=== PATIENT | female | born 1965 | race Caucasian/White ===

== ENCOUNTER → 2018-08-03 08:40 | Outpatient (CLI) | payer BC, SELFPAY ==
[2018-08-03 11:17] LABS: ALB/GLOB Ratio 0.8 RATIO (0.9-2.4); AST(SGOT) 17 U/L (15-37); Alanine Aminotransfer ALT/SGPT 28 U/L (13-56); Albumin, Serum 3.5 g/dL (3.2-5.0); Alkaline Phosphatase 103 U/L (45-117); Anion Gap 14 (5-15); BUN 23 mg/dL (7-18); BUN/Creat Ratio 26.9 RATIO (10-20); Calcium,Total 8.9 mg/dL (8.5-10.1); Chloride 105 mmol/L (98-107); Cholesterol 120 mg/dL (200); Creatinine, Serum 0.86 mg/dL (0.55-1.02); EST Glomerular Filtration Rate 73 mL/min (>60); Est Glom Filt Rate - Afr Amer 89 mL/min (>60); Globulin 4.2 g/dL (2.2-4.2); Glucose 129 mg/dL (74-106); High Density Lipoprotein 41 mg/dL; Potassium 4.1 mmol/L (3.5-5.1); Protein, Total 7.7 g/dL (6.4-8.2); Sodium Level 139 mmol/L (136-145); Thyroid Stim Hormone (TSH) 1.63 uIU/mL (0.358-3.74); Triglycerides 101 mg/dL; Very Low Density Lipoprotein 20 mg/dL (5-40)
== END ==
PROVIDERS: Family Provider Family Medicine; PCP Family Medicine; Visit Provider Family Medicine
DX: E11.319 Type 2 diabetes mellitus with unspecified diabetic retinopathy without macular edema (principal)
CPT/HCPCS: 36415; 80053; 80061; 84443

== ENCOUNTER → 2018-11-19 17:30 | Outpatient (CLI) | payer BC, SELFPAY ==
--- NOTE | 2018-11-19 17:19 | BI_ITS ---
MAMMOGRAPHY - BILATERAL SCREENING REASON FOR EXAM: Female, 53 years old. Routine annual screening examination. PERTINENT HISTORY: Non-contributory. TECHNIQUE: Digital bilateral breast wellington (3D mammographic acquisition) in the CC and MLO projections. 2-D mediolateral oblique (MLO) and craniocaudad (CC) views of both breasts were obtained. CAD: Full Field Digital Mammography with Computer Added Detection was performed. COMPARISON: No comparison mammograms available at this time. If any prior films become available, an addendum to this report can be generated. FINDINGS: Breast Composition: There are scattered areas of fibroglandular density. There are no dominant masses or suspicious calcifications. No other significant abnormalities are identified. There has been no significant change since the prior study. BI/SCREENING MAMM (CAD), BILAT IMPRESSION: Stable bilateral screening mammogram. Yearly follow-up mammogram recommended. (A) ASSESSMENT CATEGORY: BIRADS Category 1: Negative. A letter regarding these results will be sent to the patient by the facility within 30 days. Approximately 10% of breast cancers are not detected by mammography. A normal mammogram should not delay biopsy of a clinically suspicious abnormality. [id number] Electronically Signed: Ever Macario, at 10:01 EST , Service support ,
== END ==
PROVIDERS: Family Provider Family Medicine; PCP Family Medicine; Referring Provider Family Medicine; Visit Provider Family Medicine
DX: Z12.31 Encounter for screening mammogram for malignant neoplasm of breast (principal)
CPT/HCPCS: 77063; 77067

== ENCOUNTER → 2019-03-09 | Outpatient (CLI) | payer BC, SELFPAY ==
[2019-03-09 18:26] LABS: AST(SGOT) 15 U/L (15-37); Alanine Aminotransfer ALT/SGPT 25 U/L (13-56); Albumin, Serum 3.6 g/dL (3.2-5.0); Alkaline Phosphatase 88 U/L (45-117); Anion Gap 14 (5-15); BUN 14 mg/dL (7-18); BUN/Creat Ratio 18.8 RATIO (10-20); Calcium,Total 9.2 mg/dL (8.5-10.1); Chloride 107 mmol/L (98-107); Creatinine, Serum 0.74 mg/dL (0.55-1.02); EST Glomerular Filtration Rate 86 mL/min (>60); Est Glom Filt Rate - Afr Amer 104 mL/min (>60); Globulin 3.6 g/dL (2.2-4.2); Glucose 133 mg/dL (74-106); Protein, Total 7.2 g/dL (6.4-8.2); Sodium Level 143 mmol/L (136-145)
== END | disposition home or self-care (01) ==
LOC: MFPLAB 15:58
PROVIDERS: Family Provider Family Medicine; PCP Family Medicine; Referring Provider Family Medicine; Visit Provider Family Medicine
DX: E78.2 Mixed hyperlipidemia (principal)
CPT/HCPCS: 36415; 80053

== ENCOUNTER → 2019-11-22 08:31 | Outpatient (CLI) | payer BC, SELFPAY ==
[2019-11-22 10:48] LABS: AST(SGOT) 15 U/L (15-37); Alanine Aminotransfer ALT/SGPT 26 U/L (13-56); Albumin, Serum 3.7 g/dL (3.2-5.0); Alkaline Phosphatase 93 U/L (45-117); Anion Gap 8 (5-15); BUN 17 mg/dL (7-18); BUN/Creat Ratio 22.6 RATIO (10-20); Calcium,Total 9.3 mg/dL (8.5-10.1); Chloride 103 mmol/L (98-107); Cholesterol 141 mg/dL (200); Creatinine, Serum 0.75 mg/dL (0.55-1.02); EST Glomerular Filtration Rate 85 mL/min (>60); Est Glom Filt Rate - Afr Amer 102 mL/min (>60); Globulin 3.7 g/dL (2.2-4.2); Glucose 158 mg/dL (74-106); High Density Lipoprotein 43 mg/dL; Potassium 3.9 mmol/L (3.5-5.1); Protein, Total 7.4 g/dL (6.4-8.2); Sodium Level 136 mmol/L (136-145); Thyroid Stim Hormone (TSH) 2.67 uIU/mL (0.358-3.74); Triglycerides 212 mg/dL; Very Low Density Lipoprotein 42 mg/dL (5-40)
== END ==
PROVIDERS: PCP Family Medicine; Referring Provider Family Medicine; Visit Provider Family Medicine
DX: E11.319 Type 2 diabetes mellitus with unspecified diabetic retinopathy without macular edema (principal)
CPT/HCPCS: 36415; 80053; 80061; 84443

== ENCOUNTER → 2020-07-03 14:00 | Outpatient (CLI) | payer BC, SELFPAY ==
--- NOTE | 2020-07-03 14:04 | RAD_ITS ---
STUDY: X-RAY CHEST REASON FOR EXAM: Female, 54 years old. Pre op for pelvic surgery TECHNIQUE: PA and lateral views of the chest. COMPARISON: None. FINDINGS: The lungs are clear and expanded. There is no demonstrated pleural abnormality. Normal size heart. Normal mediastinum and oneal. Normal visualized pulmonary arteries. Normal visualized aortic arch and descending thoracic aorta. Normal visualized thoracic spine. Normal visualized ribs, clavicles, and shoulders. There is no demonstrated abnormality of the visualized soft tissue structures of the upper abdomen. RAD/Chest PA and Lateral IMPRESSION: Normal x-ray examination of the chest. Electronically Signed: Ricardo Burgos MD at 18:23 EDT , Service support ,
[2020-07-03 18:45] LABS: Hematocrit 46.8 % (37-47); Hemoglobin 15.2 g/dL (12.0-15.0); Mean Corp Hgb Conc 32.5 g/dL (32-36); Mean Corpuscular Hgb 28.4 pg (27.0-32.0); Mean Corpuscular Volume 87.3 fL (81-99); Mean Platelet Vol. 12.1 fl (6.2-12.0); Platelet Count 166 K/mm3 (150-450); RBC Distribution Width CV 12.9 % (11.6-14.6); RBC Distribution Width SD 40.6 fl (35.1-43.9); Red Blood Count 5.36 M/mm3 (4.2-5.4); White Blood Count 8.3 K/mm3 (4.4-11.0)
[2020-07-03 18:58] LABS: ALB/GLOB Ratio 1.2 RATIO (0.9-2.4); AST(SGOT) 17 U/L (15-37); Alanine Aminotransfer ALT/SGPT 33 U/L (13-56); Albumin, Serum 4.5 g/dL (3.2-5.0); Alkaline Phosphatase 104 U/L (45-117); Anion Gap 9 (5-15); BUN 17 mg/dL (7-18); Calcium,Total 9.5 mg/dL (8.5-10.1); Chloride 107 mmol/L (98-107); Creatinine, Serum 0.94 mg/dL (0.55-1.02); EST Glomerular Filtration Rate 65 mL/min (>60); Est Glom Filt Rate - Afr Amer 79 mL/min (>60); Globulin 3.8 g/dL (2.2-4.2); Glucose 197 mg/dL (74-106); Potassium 3.4 mmol/L (3.5-5.1); Protein, Total 8.3 g/dL (6.4-8.2); Sodium Level 140 mmol/L (136-145); Thyroid Stim Hormone (TSH) 1.84 uIU/mL (0.358-3.74)
[2020-07-03 19:09] LABS: International Normalized Ratio 0.9; Prothrombin Time (Protime)PT. 11.7 SECONDS (11.7-14.9)
[2020-07-03 19:10] LABS: Partial Thromboplast Time 25.8 Seconds (24.1-36.2)
== END ==
PROVIDERS: PCP Family Medicine; Referring Provider Family Medicine; Visit Provider Family Medicine
DX: Z01.818 Encounter for other preprocedural examination (principal); E11.9 Type 2 diabetes mellitus without complications
CPT/HCPCS: 36415; 71046; 80053; 84443; 85027; 85610; 85730

== ENCOUNTER → 2021-06-21 15:54 | Outpatient (CLI) | payer BC, SELFPAY | PROVIDERS: PCP Family Medicine; Referring Provider Family Medicine; Visit Provider Family Medicine | DX: U07.1 COVID-19 (principal); Z20.822 Contact with and (suspected) exposure to COVID-19 | CPT/HCPCS: 87635; U0005; U0003 ==

== ENCOUNTER 2021-06-22 13:53 | Outpatient (CLI) | payer BC, SELFPAY ==
[2021-06-22 14:19] VITALS: BP 133/71; PULSE 65; RESP 16; TEMP 36.6; O2SAT 99; BMI 31.9
[2021-06-22] MEDS: 0.9% Saline Lock 10 ML Syringe IV (14:22)
[2021-06-22 14:56] VITALS: BP 110/79; PULSE 66; RESP 16; TEMP 36.8; O2SAT 98
[2021-06-22 16:00] VITALS: BP 130/70; PULSE 68; RESP 16; TEMP 36.6; O2SAT 99
== END 2021-06-22 16:01 | disposition home or self-care (01) ==
LOC: MS3OUT 13:53 → MS3 13:54
PROVIDERS: PCP Family Medicine; Referring Provider Nurse Practitioner Adult Health; Visit Provider Nurse Practitioner Adult Health
DX: Z23 Encounter for immunization (principal); U07.1 COVID-19
CPT/HCPCS: J7050; M0243; A4216; Q0244

== ENCOUNTER → 2022-09-10 | Outpatient (CLI) | payer BC, SELFPAY ==
[2022-09-10 10:58] LABS: Cholesterol 131 mg/dL (200); High Density Lipoprotein 39 mg/dL; Triglycerides 139 mg/dL; Very Low Density Lipoprotein 28 mg/dL (5-40)
== END | disposition home or self-care (01) ==
PROVIDERS: PCP Family Medicine; Referring Provider Family Medicine; Visit Provider Family Medicine
DX: E11.69 Type 2 diabetes mellitus with other specified complication (principal)
CPT/HCPCS: 36415; 80061

== ENCOUNTER → 2022-09-17 | Outpatient (CLI) | payer BC, SELFPAY ==
--- NOTE | 2022-09-17 16:42 | BI_ITS ---
MAMMOGRAPHY - BILATERAL SCREENING REASON FOR EXAM: Female, 56 years old. Routine annual screening examination. PERTINENT HISTORY: Non-contributory. TECHNIQUE: Digital bilateral breast pritesh (3D mammographic acquisition) in the CC and MLO projections. 2-D mediolateral oblique (MLO) and craniocaudad (CC) views of both breasts were obtained. CAD: Full Field Digital Mammography with Computer Added Detection was performed. COMPARISON: Mammogram from 11/19/2018 FINDINGS: Breast Composition: There are scattered areas of fibroglandular density. There are no dominant masses or suspicious calcifications. No other significant abnormalities are identified. There has been no significant change since the prior study. BI/SCRN MAMM (CAD)W/PRITESH BILAT IMPRESSION: Stable bilateral screening mammogram. Yearly follow-up mammogram recommended. (A) ASSESSMENT CATEGORY: BIRADS Category 1: Negative. A letter regarding these results will be sent to the patient by the facility within 30 days. Approximately 10% of breast cancers are not detected by mammography. A normal mammogram should not delay biopsy of a clinically suspicious abnormality. Electronically Signed: Casper Crowley, at 16:41 EST ,
== END | disposition home or self-care (01) ==
LOC: OPBI 09-18 06:59
PROVIDERS: PCP Family Medicine; Visit Provider Family Medicine
DX: Z12.31 Encounter for screening mammogram for malignant neoplasm of breast (principal)
CPT/HCPCS: 77063; 77067

== ENCOUNTER → 2023-07-15 | Outpatient (CLI) | payer BC, SELFPAY ==
[2023-07-15 10:58] LABS: Vitamin B12 306 pg/mL (211-911)
[2023-07-15 11:12] LABS: Anion Gap 10 (5-15); BUN 22 mg/dL (7-18); BUN/Creat Ratio 26.1 RATIO (10-20); Calcium,Total 9.2 mg/dL (8.5-10.1); Chloride 109 mmol/L (98-107); Cholesterol 125 mg/dL (200); Creatinine, Serum 0.84 mg/dL (0.55-1.02); EST Glomerular Filtration Rate 73 mL/min (>60); Est Glom Filt Rate - Afr Amer 89 mL/min (>60); Glucose 173 mg/dL (74-106); High Density Lipoprotein 43 mg/dL; Potassium 3.7 mmol/L (3.5-5.1); Sodium Level 139 mmol/L (136-145); Triglycerides 171 mg/dL; Very Low Density Lipoprotein 34 mg/dL (5-40)
== END | disposition home or self-care (01) ==
LOC: MTLAB 08:52
PROVIDERS: PCP Family Medicine; Referring Provider Family Medicine; Visit Provider Family Medicine
DX: E11.69 Type 2 diabetes mellitus with other specified complication (principal); E11.319 Type 2 diabetes mellitus with unspecified diabetic retinopathy without macular edema
CPT/HCPCS: 36415; 80048; 80061; 82607; 84443

== ENCOUNTER → 2025-01-10 | Outpatient (CLI) | payer BC, SELFPAY ==
[2025-01-10 11:04] LABS: Absolute Lymphocyte Count 1.83 X10^3/uL (0.83-4.51); Absolute Neutrophil Count 4.3 X10^3/uL (2.0-7.7); Basophil# 0.03 X10^3/uL; Basophil% 0.5 % (0-1); Hemoglobin 14.5 g/dL (12.0-15.0); Lymphocyte # 1.83 X10^3/ul (0.83-4.51); Lymphocyte % 27.6 % (19-41); Mean Corpuscular Hgb 28.5 pg (27.0-32.0); Mean Corpuscular Volume 86.6 fL (81-99); Mean Platelet Vol. 10.4 fl (6.2-12.0); Monocyte# 0.41 X10^3/uL; Monocyte% 6.2 % (0-10); NRBC Flagged by Analyzer 0 % (0-5); Neutrophil # 4.33 X10^3/uL (2.7-7.7); Neutrophil % 65.4 % (47-70); Platelet Count 208 K/mm3 (150-450); RBC Distribution Width CV 12.2 % (11.6-14.6); RBC Distribution Width SD 38.7 fl (35.1-43.9); Red Blood Count 5.08 M/mm3 (4.2-5.4); White Blood Count 6.6 K/mm3 (4.4-11.0)
[2025-01-10 12:05] LABS: ALB/GLOB Ratio 1.7 RATIO (0.9-2.4); AST(SGOT) 20 U/L (<=31); Alanine Aminotransfer ALT/SGPT 22 U/L (<=34); Albumin, Serum 4.3 g/dL (3.4-4.8); Alkaline Phosphatase 126 U/L (35-104); Anion Gap 13 (5-15); BUN 16 mg/dL (4-19); BUN/Creat Ratio 20.7 RATIO (10-20); Calcium,Total 9.8 mg/dL (7.6-11.0); Carbon Dioxide 22.3 mmol/L (21.0-32.0); Chloride 102 mmol/L (98-108); Cholesterol 165 mg/dL (<=200); Creatinine, Serum 0.78 mg/dL (0.70-1.20); EST Glomerular Filtration Rate 87 (>60); Globulin 2.5 g/dL (2.2-4.2); Glucose 186 mg/dL (70-99); Hepatitis B Surface Antibody REAC; Hepatitis B Surface Antigen Nonreactive (Nonreactive); Hepatitis C Antibody Nonreactive (Nonreactive); High Density Lipoprotein 51 mg/dL; Low Density Lipoprotein Calc. 89 mg/dL; Potassium 4.3 mmol/L (3.3-5.1); Protein, Total 6.8 g/dL (5.9-8.4); Sodium Level 137 mmol/L (133-145); Total Bilirubin 0.56 mg/dL (0.00-1.30); Triglycerides 125 mg/dL; Very Low Density Lipoprotein 25 mg/dL (5-40); cholesterol:hdl ratio screen 3.25
[2025-01-13 04:07] LABS: Hepatitis B Core AB IgM Negative (Negative); QNTFERON TB Mitogen Value 6.21 IU/mL (.); QNTFERON TB Nil Value 0.06 IU/mL (.); QNTFERON TB2+ Ag Value 0.11 IU/mL (.); QNTIFERON TB Positive Criteria Negative (Negative)
== END | disposition home or self-care (01) ==
LOC: MTLAB 09:04
PROVIDERS: PCP Family Medicine; Referring Provider Family Medicine; Visit Provider Family Medicine
DX: L30.9 Dermatitis, unspecified (principal); E11.319 Type 2 diabetes mellitus with unspecified diabetic retinopathy without macular edema; Z79.622 Long term (current) use of Janus kinase inhibitor
CPT/HCPCS: 80053; 80061; 84443; 85025; 86480; 86705; 86706; 86803; 87340

== ENCOUNTER → 2025-04-20 | Outpatient (CLI) | payer OTHER, SELFPAY ==
--- NOTE | 2025-04-20 07:49 | BI_ITS ---
EXAM: SCRN MAMM (CAD)W/PRITESH BILAT DATE: 04/20/2025 CLINICAL HISTORY: F, Age 59 y/o , SCREENING TECHNIQUE: SCRN MAMM (CAD)W/PRITESH BILAT COMPARISON: Prior exam(s) dated 09/17/2022, 11/19/2018. FINDINGS: TISSUE DENSITY: There are scattered areas of fibroglandular density. Bilateral Breast Mammographic Findings: No significant masses, calcifications or other abnormalities are identified. BI/SCRN MAMM (CAD)W/PRITESH BILAT IMPRESSION: There is no mammographic evidence of malignancy. OVERALL FINAL ASSESSMENT BI-RADS 1: NEGATIVE. RECOMMENDATION: Routine annual follow-up in 1 Year A letter with findings and recommendations will be mailed to the patient. Reading Location: [id number]
--- OUTSIDE RECORDS SUMMARY | 2025-04-20 07:59 | XMS RPT_ITS | CCD ---
Author Organization [facility] Inform ion Partnership [facility] Care Team Providers Care Browning Processor Name Role Phone Unavailable Primary Care Provider UnavailShivam Stanley Attending Unavailable Az Sargent Referring Unavailable Az Sargent Primary Care Unavailable Az Sargent Attending Unavailable Az Sargent Referring Unavailable Az Sargent Primary Care Unavailable Inderjit Pak Unavailable Az Sargent Attending Unavailable Az Sargent Referring Unavailable Az Sargent Primary Care Unavailable Medications Current Medications Medication Drug Class(es) Dates Sig (Normalized) Sig (Original) aspirin 81 mg oral tablet (3 sources) Platelet Aggregation Inhibitor, Nonsteroidal Anti-inflammatory Drug Start: 06-22-2021 take 81 mg by mouth twice daily aspirin Active 81 MG SL/PO TWICE A DAY June 22, 2021 12:00am atorvastatin 20 mg oral tablet (1 source) HMG-CoA Reductase Inhibitor Start: 11-26-2024 take 1 tablet by mouth once daily atorvastatin (LIPITOR) 20 mg tablet Take 1 tablet by mouth once daily. 11/26/2024 Active 0.5 ml dulaglutide 3 mg/ml auto-injector (3 sources) GLP-1 Receptor Agonist Start: 06-22-2021 Dulaglutide (Trulicity) 1.5 mg/0.5 mL Pen Injector Active 1.5 MG SC EVERY WEEK June 22, 2021 12:00am empagliflozin 25 mg oral tablet (1 source) Sodium-Glucose Cotransporter 2 Inhibitor Start: 11-19-2024 take 1 tablet by mouth once daily JARDIANCE 25 mg tablet Take 1 tablet by mouth once daily. 11/19/2024 Active losartan potassium 50 mg oral tablet (1 source) Angiotensin 2 Receptor Heydi Start: 11-26-2024 take 1 tablet by mouth every twelve hours losartan (COZAAR) 50 mg tablet Take 1 tablet by mouth every 12 hours. 11/26/2024 Active metFORMIN hydrochloride 1000 mg oral tablet (4 sources) Biguanide Start: 11-26-2024 take 1 tablet by mouth every twelve hours metFORMIN (GLUCOPHAGE) 1,000 mg tablet Take 1 tablet by mouth every 12 hours. 11/26/2024 Active Start: 06-22-2021 take 500 mg by mouth twice elodia ly Metformin Active 500 MG PO TWICE A DAY June 22, 2021 12:00am ofloxacin 3 mg/ml ophthalmic solution (1 source) Quinolone Antimicrobial Start: 12-29-2024 take 1 drop(s) into the eye(s) four times daily ofloxacin (OCUFLOX) 0.3 % ophthalmic solution Use 1 drop in both eyes four times daily. 12/29/2024 Active OZEMPIC 1 mg/dose (4 mg/3 mL) pen (1 source) Start: 11-26-2024 inject 1 mg by subcutaneous injection every week OZEMPIC 1 mg/dose (4 mg/3 mL) pen Inject 1 mg subcutaneously one time a week. 11/26/2024 Active valsartan 160 mg oral tablet (3 sources) Angiotensin 2 Receptor Heydi Start: 06-22-2021 take 160 mg by mouth twice daily Valsartan Active 160 MG PO TWICE A DAY June 22, 2021 12:00am Problems Active Problems Problem Classification Problem Date Documented Da te Episodic/Chronic Diabetes mellitus without complication (3 sources) Diabetes mellitus; Translations: [Type 2 diabetes mellitus without complications] 06-22-2021 Chronic Other inflammatory condition of skin (1 source) Pityriasis rosea; Translations: [Pityriasis rosea] 12-31-2024 Chronic Other screening for suspected conditions (not mental disorders or infectious disease) (1 source) Encounter for screening mammogram for malignant neoplasm of breast; Translations: [Encounter for screening mammogram for malignant neoplasm of breast] Onset: 04-18-2025 Episodic Viral infection (3 sources) Disease caused by 2019-nCoV; Translations: [COVID-19] 06-22-2021 Episodic Past or Other Problems Problem Classification Problem Date Documented Da te Episodic/Chronic Allergic reactions (1 source) Dermatitis, unspecified; Translations: [Dermatitis, unspecified] Onset: 01-13-2025 Episodic Results Test Name Value Interpretation Reference Range Facility Hepatitis B Core AB IgMon HEP B CORE,IgM Negative Normal Negative [facility] Comment on above: Result Comment: Perf ormed at: [address] [id number] Consumer Marketing Analyst: Chris Rodriguez PhD, Phone: [phone] Performed By: #### L 3100.0440, L3890.6301, L3400.8000, L100.0100, L3890.6102, L3890.6202 #### [facility] [address] [place], [place], [address] Quantiferon TB-Gold+on 01-13 QFT MITOGEN RUFINA 6.21 IU/mL Normal . [facility] Comment on above: Performed By: #### L 3100.0440, L3890.6301, L3400.8000, L100.0100, L3890.6102, L3890.6202 #### [facility] [address] [place], [address] QFT NIL VALUE 0.06 IU/mL Normal . [facility] Comment on above: Performed By: #### L 3100.0440, L3890.6301, L3400.8000, L100.0100, L3890.6102, L3890.6202 #### [facility] [address] [place], [place], [id number] QFT TB GOLD+ Comment Normal . [facility] Comment on above: Result Comment: Hussein tiFERON-TB Gold Plus is a qualitative indirect test for M tuberculosis infection (including disease) and is intended for use in conjunction with risk assessment, radiography, and other medical and diagnostic evaluations. The QuantiFERON-TB Gold Plus result is determined by subtracting the Nil value from either TB antigen (Ag) value. The Mitogen tube serves as a control for the test. Performed By: #### L 3100.0440, L3890.6301, L3400.8000, L100.0100, L3890.6102, L3890.6202 #### [facility] [address] [place], [place], [address] QFT TB POS CRIT Negative Normal Negative [facility] Comment on above: Result Comment: No r esponse to M tuberculosis antigens detected. Infection with M tuberculosis is unlikely, but high risk individuals should be considered for additional testing (ATS/IDSA/CDC Clinical Practice Guidelines, 2017). The reference range is an Antigen minus Nil result of <0.35 IU/mL. The specimen received for QuantiFERON testing was incubated by the ordering institution. Specific procedures outlined in our Directory of Services and in the package insert for the QuantiFERON Gold (In Tube) test must be followed to enable for proper stimulation of cells for the production of interferon gamma. Chemiluminescence immunoassay methodology Performed By: #### L 3100.0440, L3890.6301, L3400.8000, L100.0100, L3890.6102, L3890.6202 #### [facility] [address] [place], [address] QFT TB1+ AG RUFINA 0.10 IU/mL Normal . [facility] Comment on above: Performed By: #### L 3100.0440, L3890.6301, L3400.8000, L100.0100, L3890.6102, L3890.6202 #### [facility] [address] [place], [address] QFT TB2+ AG RUFINA 0.11 IU/mL Normal . [facility] Comment on above: Performed By: #### L 3100.0440, L3890.6301, L3400.8000, L100.0100, L3890.6102, L3890.6202 #### [facility] [address] [place], [address] CBC W/Diff, Automatedon 04-2 Absolute Lymph 1.83 X10 3/uL Normal 0.83-4.51 [facility] Comment on above: Performed By: #### L 3100.0440, L3890.6301, L3400.8000, L100.0100, L3890.6102, L3890.6202 #### [facility] [address] [place], [address] Absolute Neut 4.3 X10 3/uL Normal 2.0-7.7 [facility] Comment on above: Performed By: #### L 3100.0440, L3890.6301, L3400.8000, L100.0100, L3890.6102, L3890.6202 #### [facility] [address] [place], [address] Basophils/100 WBC (Bld) 0.5 % Normal 0-1 [facility] Comment on above: Performed By: #### L 3100.0440, L3890.6301, L3400.8000, L100.0100, L3890.6102, L3890.6202 #### [facility] [address] [place], [address] Eosinophils/100 WBC (Bld) 0.0 % Normal 0-5 [facility] Comment on above: Performed By: #### L 3100.0440, L3890.6301, L3400.8000, L100.0100, L3890.6102, L3890.6202 #### [facility] [address] [place], [address] Erythrocyte distribution width (RBC) [Ratio] 12.2 % Normal 11.6-14.6 [facility] Comment on above: Performed By: #### L 3100.0440, L3890.6301, L3400.8000, L100.0100, L3890.6102, L3890.6202 #### [facility] [address] [place], [address] Hematocrit (Bld) [Volume fraction] 44.0 % Normal 37-47 [facility] Comment on above: Performed By: #### L 3100.0440, L3890.6301, L3400.8000, L100.0100, L3890.6102, L3890.6202 #### [facility] [address] [place], [address] Hemoglobin (Bld) [Mass/Vol] 14.5 g/dL Normal 12.0-15.0 [facility] Comment on above: Performed By: #### L 3100.0440, L3890.6301, L3400.8000, L100.0100, L3890.6102, L3890.6202 #### [facility] [address] [place], [address] IG% 0.300 Normal 0.0-0.9 [facility] Comment on above: Result Comment: IG% - Immature Granulocytes (promyelocytes, myelocytes and metamyelocytes) > 1% indicates that a LEFT SHIFT is Present. Performed By: #### L 3100.0440, L3890.6301, L3400.8000, L100.0100, L3890.6102, L3890.6202 #### [facility] [address] [place], [address] Lymphocytes/100 WBC (Bld) 27.6 % Normal 19-41 [facility] Comment on above: Performed By: #### L 3100.0440, L3890.6301, L3400.8000, L100.0100, L3890.6102, L3890.6202 #### [facility] [address] [place], [address] MCH (RBC) [Entitic mass] 28.5 pg Normal 27.0-32.0 [facility] Comment on above: Performed By: #### L 3100.0440, L3890.6301, L3400.8000, L100.0100, L3890.6102, L3890.6202 #### [facility] [address] [place], [address] MCHC (RBC) [Mass/Vol] 33.0 g/dL Normal 32-36 [facility] Comment on above: Performed By: #### L 3100.0440, L3890.6301, L3400.8000, L100.0100, L3890.6102, L3890.6202 #### [facility] [address] [place], [address] MCV (RBC) [Entitic vol] 86.6 fL Normal 81-99 [facility] Comment on above: Performed By: #### L 3100.0440, L3890.6301, L3400.8000, L100.0100, L3890.6102, L3890.6202 #### [facility] [address] [place], [address] Monocytes/100 WBC (Bld) 6.2 % Normal 0-10 [facility] Comment on above: Performed By: #### L 3100.0440, L3890.6301, L3400.8000, L100.0100, L3890.6102, L3890.6202 #### [facility] [address] [place], [address] Neutrophils/100 WBC (Bld) 65.4 % Normal 47-70 [facility] Comment on above: Performed By: #### L 3100.0440, L3890.6301, L3400.8000, L100.0100, L3890.6102, L3890.6202 #### [facility] [address] [place], [address] Nucleated RBC (Bld) [#/Vol] 0 10*3/uL Normal 0-5 [facility] Comment on above: Performed By: #### L 3100.0440, L3890.6301, L3400.8000, L100.0100, L3890.6102, L3890.6202 #### [facility] [address] [place], [address] Platelet mean volume (Bld) [Entitic vol] 10.4 fL Normal 6.2-12.0 [facility] Comment on above: Performed By: #### L 3100.0440, L3890.6301, L3400.8000, L100.0100, L3890.6102, L3890.6202 #### [facility] [address] [place], [address] Platelets (Bld) [#/Vol] 208 10*3/uL Normal 150-450 [facility] Comment on above: Performed By: #### L 3100.0440, L3890.6301, L3400.8000, L100.0100, L3890.6102, L3890.6202 #### [facility] [address] [place], [address] RBC (Bld) [#/Vol] 5.08 10*6/uL Normal 4.2-5.4 [facility] Comment on above: Performed By: #### L 3100.0440, L3890.6301, L3400.8000, L100.0100, L3890.6102, L3890.6202 #### [facility] [address] [place], [address] RDW SD 38.7 fl Normal 35.1-43.9 [facility] Comment on above: Performed By: #### L 3100.0440, L3890.6301, L3400.8000, L100.0100, L3890.6102, L3890.6202 #### [facility] [address] [place], [address] WBC (Bld) [#/Vol] 6.6 10*3/uL Normal 4.4-11.0 [facility] Comment on above: Performed By: #### L 3100.0440, L3890.6301, L3400.8000, L100.0100, L3890.6102, L3890.6202 #### [facility] [address] [place], [address] Comprehensive Metabolic Prof ilon 01-10-2025 Albumin [Mass/Vol] 4.3 g/dL Normal 3.4-4.8 [facility] Comment on above: Order Comment: Order Date: 06/14/24 Order Info: 785- - CMP Order Info: - LIPID Order Info: 3015-11 - TSH Performed By: #### L 500.4050, L500.4100, L501.9520 #### [facility] [address] [place], [place], [address] Albumin/Globulin [Mass ratio] 1.7 {ratio} Normal 0.9-2.4 [facility] Comment on above: Order Comment: Order Date: 06/14/24 Order Info: 785-09 - CMP Order Info: - LIPID Order Info: 3015-11 - TSH Performed By: #### L 500.4050, L500.4100, L501.9520 #### [facility] [address] [place], [place], [address] ALK PHOS 126 U/L High 35-104 [facility] Comment on above: Order Comment: Order Date: 06/14/24 Order Info: 785-09 - CMP Order Info: - LIPID Order Info: 3 - TSH Performed By: #### L 500.4050, L500.4100, L501.9520 #### [facility] [address] [place], [address] ALT [Catalytic activity/Vol] 22 U/L Normal <=34 [facility] Comment on above: Order Comment: Order Date: 06/14/24 Order Info: 785-09 - CMP Order Info: [id number] - LIPID Order Info: 3 - TSH Performed By: #### L 500.4050, L500.4100, L501.9520 #### [facility] [address] [place], [address] AST [Catalytic activity/Vol] 20 U/L Normal <=31 [facility] Comment on above: Order Comment: Order Date: 06/14/24 Order Info: 785-1 - CMP Order Info: [id number] - LIPID Order Info: 3015-3 - TSH Performed By: #### L 500.4050, L500.4100, L501.9520 #### [facility] [address] [place], [address] Bilirubin [Mass/Vol] 0.56 mg/dL Normal 0.00-1.30 [facility] Comment on above: Order Comment: Order Date: 06/14/24 Order Info: 785-09 - CMP Order Info: [id number] - LIPID Order Info: 3 - TSH Performed By: #### L 500.4050, L500.4100, L501.9520 #### [facility] [address] [place], [address] BUN/CRE 20.7 RATIO High 10-20 [facility] Comment on above: Order Comment: Order Date: 06/14/24 Order Info: 785-09 - CMP Order Info: - LIPID Order Info: 3015-11 - TSH Performed By: #### L 500.4050, L500.4100, L501.9520 #### [facility] [address] [place], [address] Calcium [Mass/Vol] 9.8 mg/dL Normal 7.6-11.0 [facility] Comment on above: Order Comment: Order Date: 06/14/24 Order Info: 785-09 - CMP Order Info: [id number] - LIPID Order Info: 3 - TSH Performed By: #### L 500.4050, L500.4100, L501.9520 #### [facility] [address] [place], [address] Chloride [Moles/Vol] 102 mmol/L Normal 98-108 [facility] Comment on above: Order Comment: Order Date: 06/14/24 Order Info: 785- - CMP Order Info: - LIPID Order Info: 3 - TSH Performed By: #### L 500.4050, L500.4100, L501.9520 #### [facility] [address] [place], [address] CO2 [Moles/Vol] 22.3 mmol/L Normal 21.0-32.0 [facility] Comment on above: Order Comment: Order Date: 06/14/24 Order Info: 785- - CMP Order Info: - LIPID Order Info: 3015-11 - TSH Performed By: #### L 500.4050, L500.4100, L501.9520 #### [facility] [address] [place], [address] Creatinine [Mass/Vol] 0.78 mg/dL Normal 0.70-1.20 [facility] Comment on above: Order Comment: Order Date: 06/14/24 Order Info: 785-09 - CMP Order Info: - LIPID Order Info: 3015-11 - TSH Performed By: #### L 500.4050, L500.4100, L501.9520 #### [facility] [address] [place], [address] GAP 13 Normal 5-15 [facility] Comment on above: Order Comment: Order Date: 06/14/24 Order Info: 785-09 - CMP Order Info: [id number] - LIPID Order Info: 3 - TSH Performed By: #### L 500.4050, L500.4100, L501.9520 #### [facility] [address] [place], [address] GFR/1.73 sq M.predicted among non-blacks MDRD (S/P/Bld) [Vol rate/Area] 87 mL/min/{1.73_m2} Normal >60 [facility] Comment on above: Order Comment: Order Date: 06/14/24 Order Info: 785-09 - CMP Order Info: - LIPID Order Info: 3015-11 - TSH Result Comment: mL/m in/1.73m2 CKD-EPI Creatinine Equation (2020) Performed By: #### L 500.4050, L500.4100, L501.9520 #### [facility] [address] [place], [address] Globulin (S) [Mass/Vol] 2.5 g/dL Normal 2.2-4.2 [facility] Comment on above: Order Comment: Order Date: 06/14/24 Order Info: 785-09 - CMP Order Info: - LIPID Order Info: 3015-11 - TSH Performed By: #### L 500.4050, L500.4100, L501.9520 #### [facility] [address] [place], [address] Glucose [Mass/Vol] 186 mg/dL High 70-99 [facility] Comment on above: Order Comment: Order Date: 06/14/24 Order Info: 785-09 - CMP Order Info: - LIPID Order Info: 3015-11 - TSH Performed By: #### L 500.4050, L500.4100, L501.9520 #### [facility] [address] [place], [address] Potassium [Moles/Vol] 4.3 mmol/L Normal 3.3-5.1 [facility] Comment on above: Order Comment: Order Date: 06/14/24 Order Info: 785-09 - CMP Order Info: - LIPID Order Info: 3015-11 - TSH Performed By: #### L 500.4050, L500.4100, L501.9520 #### [facility] [address] [place], [address] Sodium [Moles/Vol] 137 mmol/L Normal 133-145 [facility] Comment on above: Order Comment: Order Date: 06/14/24 Order Info: 785- - CMP Order Info: - LIPID Order Info: 3015-11 - TSH Performed By: #### L 500.4050, L500.4100, L501.9520 #### [facility] [address] [place], [place], [address] T PROT 6.8 g/dL Normal 5.9-8.4 [facility] Comment on above: Order Comment: Order Date: 06/14/24 Order Info: 785-09 - CMP Order Info: - LIPID Order Info: 3015-11 - TSH Performed By: #### L 500.4050, L500.4100, L501.9520 #### [facility] [address] [facility] [address] [place], [place], [id number] Urea nitrogen [Mass/Vol] 16 mg/dL Normal 4-19 [facility] Comment on above: Order Comment: Order Date: 06/14/24 Order Info: 785-09 - CMP Order Info: - LIPID Order Info: 3015-11 - TSH Performed By: #### L 500.4050, L500.4100, L501.9520 #### [facility] [address] [facility] [place], [place], [id number] Hepatitis B Surface Antibody on 01-10-2025 HEP B Surf Ab REAC Normal [facility] Comment on above: Order Comment: Order Date: 06/14/24 Order Info: 785-09 - CMP Order Info: - LIPID Order Info: 3015-11 - TSH Result Comment: <8.5 mIU/mL: Non-Reactive 8.5<= x <11.5 mIU/mL: Indeterminate >=11.5 mIU/mL: Reactive Non Reactive: Inconsistent with immunity less than <10 mIU/mL Reactive: Consistent with immunity greater than or equal to 10 mIU/mL Performed By: #### L 3100.0440, L3890.6301, L3400.8000, L100.0100, L3890.6102, L3890.6202 #### [facility] [address] [place], [place], [address] Hepatitis C Antibodyon 01-10 Hepatitis C Ab Non-Reactive Normal Nonreactive [facility] Comment on above: Order Comment: Order Date: 06/14/24 Order Info: 0786-1 - [facility] Order Info: [id number] - LIPID Order Info: 3 - TSH Result Comment: Reac tive: Presumptive evidence of antibodies to HCV. Follow CDC recommendations for supplemental testing. Non-Reactive: Antibodies to HCV were not detected; does not exclude the possibility of exposure to HCV Reactive Results are presumptive evidence of antibodies to HCV. Follow CDC recommendations for supplemental testing. Order confirmation testing: HCV Quant by PCR testing - HCVPCR #[id number] Non Reactive: < 0.8 Equivocal: >/= 0.8 to < 1.0 Reactive: >/= 1.0 The [facility] requires that a reactive/equivocal HCV antibody result be sent out for confirmation. HCV Quant by PCR testing. Performed By: #### L 3100.0440, L3890.6301, L3400.8000, L100.0100, L3890.6102, L3890.6202 #### [facility] [address], [place], [address] L3890.6102on 01-10-2025 HEP B Surf Ag Non-Reactive Normal Nonreactive [facility] Comment on above: Order Comment: Order Date: 06/14/24 Order Info: 0786-1 - [facility] Order Info: [id number] - LIPID Order Info: 3013 - TSH Result Comment: Reac tive: Presumptive evidence of HBV. Repeatedly reactive samples must be confirmed using a neutralization test ([employer] HBsAg Confirmatory Test) Non-Reactive: HBsAg not detected; does not exclude the possibility of exposure to HBV Performed By: #### L 3100.0440, L3890.6301, L3400.8000, L100.0100, L3890.6102, L3890.6202 #### [facility] [address] [facility] [place], [address] Lipid Profileon 01-10-2025 CHOL:HDL 3.25 Normal [facility] Comment on above: Order Comment: Order Date: 06/14/24 Order Info: 0786-1 - CMP Order Info: [id number] - LIPID Order Info: 3 - TSH Performed By: #### L 500.4050, L500.4100, L501.9520 #### [facility] [address] [place], [address] Cholesterol [Mass/Vol] 165 mg/dL Normal <=200 [facility] Comment on above: Order Comment: Order Date: 06/14/24 Order Info: 07 - CMP Order Info: - LIPID Order Info: 3 - TSH Result Comment: Chol esterol level, Desirable <200 mg/dL Borderline high cholesterol 200-239 mg/dL High cholesterol >=240 mg/dL Recommendations of the NCEP Adult Treatment Panel for the following risk-cutoff thresholds for the [place] population. Performed By: #### L 500.4050, L500.4100, L501.9520 #### [facility] [address] [place], [address] Cholesterol in HDL [Mass/Vol] 51 mg/dL Normal [facility] Comment on above: Order Comment: Order Date: 06/14/24 Order Info: 0786- - CMP Order Info: [id number] - LIPID Order Info: 3 - TSH Result Comment: Rosa onal Cholesterol Education Program (NCEP) guidelines: <40 mg/dL: Low HDL-cholesterol (major risk factor for CHD) >= 60 mg/dL: High HDL-cholesterol (negative risk factor for CHD) HDL-cholesterol is affected by a number of factors, e.g. smoking, exercise, hormones, sex and age. Performed By: #### L 500.4050, L500.4100, L501.9520 #### [facility] [address] [place], [address] Cholesterol in LDL [Mass/Vol] 89 mg/dL Normal [facility] Comment on above: Order Comment: Order Date: 06/14/24 Order Info: 785-09 - CMP Order Info: - LIPID Order Info: [id number] - TSH Result Comment: Bord qsvlsk=736-415 mg/dL Higher Jawj=388 mg/dL or greater Performed By: #### L 500.4050, L500.4100, L501.9520 #### [facility] [address] [place], [address] Cholesterol in VLDL [Mass/Vol] 25 mg/dL Normal 5-40 [facility] Comment on above: Order Comment: Order Date: 06/14/24 Order Info: 785-09 - CMP Order Info: - LIPID Order Info: 3015-11 - TSH Performed By: #### L 500.4050, L500.4100, L501.9520 #### [facility] [address] [place], [address] Triglyceride [Mass/Vol] 125 mg/dL Normal [facility] Comment on above: Order Comment: Order Date: 06/14/24 Order Info: 785-09 - CMP Order Info: - LIPID Order Info: 3015-11 - TSH Result Comment: The drugs N-Acetylcysteine and Metamizole may falsely depress this assay. Normal range: <150 mg/dL Borderline High: 150-199 mg/dL High: 200-499 mg/dL Very High: >500 mg/dL Performed By: #### L 500.4050, L500.4100, L501.9520 #### [facility] [address] [place], [address] Thyroid Stim Hormone (TSH)on 01-10-2025 TSH 1.770 uIU/mL Normal 0.300-4.200 [facility] Comment on above: Order Comment: Order Date: 06/14/24 Order Info: 07 - CMP Order Info: - LIPID Order Info: 3015-11 - TSH Performed By: #### L 500.4050, L500.4100, L501.9520 #### [facility] [place], [address] CNOVon 12-31-2024 CNOV Office Visit (WSTR ) TATI NINO ([id number]) 1965 F Date Time Provider Department 12/31/24 7:15 PM [facility] During your visit today, we recorded the following information about you: Temperature Pulse Respiration Blood pressure 98.4 degrees 75/minute 20/minute 157/85 Weight 79 kg Sreedhar Mcadams APRN.DIET ATTENDANT 12/31/2024 7:59 PM Signed [facility] Subjective Tati Nino is a 59 year old female. Patient presents with: Rash: All over body, red raised pustules in all areas including buttocks and privates, but not on face or neck. Has tried some treatment but only worsening more x 2 months Rash Pertinent negatives include no fatigue or fever. 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 59-year-old female with a history of diabetes she has had a skin rash for about a month and a half now. She states she was treated for scabies twice with no improvement of symptoms. She states it is super itchy. She denies any new soaps or detergents. No swelling of her hands or feet. Review of Systems Constitutional: Negative for chills, fatigue and fever. Skin: Positive for rash. Negative for color change, pallor and wound. Objective BP 157/85 Pulse 75 Temp 36.9 ?C (98.4 ?F) Resp 20 Wt 79 kg (174 lb 2.6 oz) LMP (LMP Unknown) SpO2 98% Physical Exam Constitutional: Appearance: Normal appearance. Cardiovascular: Rate and Rhythm: Normal rate and regular rhythm. Pulmonary: Effort: Pulmonary effort is normal. Breath sounds: Normal breath sounds. Skin: Comments: Dry patch 3 cm lesion on back, dry patch papular covering arms and abdomen difusely Neurological: Mental Status: She is alert. {ASSESSMENT/PLAN: 1. Pityriasis rosea - ICD9: 696.3, ICD10: L42 Zyrtec 40 mg daily Sreedhar Mcadams APRN.DIET ATTENDANT History and Record Review Clinical information obtained from an independent historian. History obtained from or confirmed by: family member. External record(s) reviewed: prior outpatient record. Disposition The patient was discharged. patient is well-appearing nontoxic in no acute distress. She presents today with psoriasis rosea. Does have a herald patch on her upper right trunk. No concerns of angioedema, cellulitis, or any neurovascular deficits today. Did discuss with her as she was treated with methylprednisone and permethrin before that would do Zyrtec at a higher dosing for itching and the usually self resolved itself can last several months. Would recommend following up with dermatology for skin test if symptoms are continuing to occur. Patient verbalized understanding and agreement with plan and discharged home. Sreedhar Mcadams APRN.CNP 12/31/2024 7:44 PM Signed Zyrtec 40 mg daily Follow up with dermatology for skin biopsy if persistent or worsening of symptoms Usually self resolves can last months. Allergies As of Date: 12/31/2024 (No Known Allergies) Date Reviewed: 12/31/2024 Reviewed by: Robyn Ball LPN - Fully Assessed Reason for Visit: Rash [1087] Cmt: All over body, red raised pustules in all areas including buttocks and privates, but not on face or neck. Has tried some treatment but only worsening more x 2 months Primary Visit Diagnosis:Pityriasis rosea [L42] Prescriptions as of 12/31/2024 - atorvastatin (LIPITOR) 20 mg tablet Take 1 tablet by mouth once daily. - JARDIANCE 25 mg tablet Take 1 tablet by mouth once daily. - losartan (COZAAR) 50 mg tablet Take 1 tablet by mouth every 12 hours. - metFORMIN (GLUCOPHAGE) 1,000 mg tablet Take 1 tablet by mouth every 12 hours. - OZEMPIC 1 mg/dose (4 mg/3 mL) pen Inject 1 mg subcutaneously one time a week. - ofloxacin (OCUFLOX) 0.3 % ophthalmic solution Use 1 drop in both eyes four times daily. Problem List As Of Date: 12/31/2024 (None) Other instructions from your clinician: Zyrtec 40 mg daily Follow up with dermatology for skin biopsy if persistent or worsening of symptoms Usually self resolves can last months. Encounter Status:Closed by SREEDHAR MCADAMS on 12/31/24 Normal [facility] Visit Reporton 0 12-04-2024 Urgent Care Visit Report [facility] [address], [address] [place] [address] OFFICE VISIT Date of Service: 12/04/24 MR#: [id number] Acct: [id number] Name: TATI NINO Rep #: [id number] : 1965 Provider: PADDY Caballero Age/Sex: 59/F Location: [facility] Status: Signed Intake Vital Signs 11/29/23 12:51 12/04/24 12:54 Height 5 ft 5 in BP 124/84 H Position Sitting Pulse 70 Temp 98.1 F Temp Source Oral Pulse Oximetry (%) 97 Oxygen Delivery Method room air Intake Visit Reasons: RASH COVERING BODY Chief Complaint: right eye redness/itching Accompanied by: Allergies No Known Allergies Allergy (Verified 12/04/24 12:55) Medications ???Medication ???Instructions ???Recorded ???Confirmed ???Type metformin 500 mg tablet,extended 500 mg PO BID 06/22/21 12/04/24 Hi story release 24 hr atorvastatin 20 mg tablet 20 mg PO QDAY 11/29/23 12/04/24 Hi story empagliflozin 25 mg tablet 25 mg PO QDAY 11/29/23 12/04/24 Hi story (Jardiance) semaglutide 1 mg/dose (4 mg/3 mL) 1 mg subcut QWEEK 11/29/23 History subcutaneous pen injector (Ozempic) methylprednisolone 4 mg tablets in See Rx Instructions PO PER PKG D IR 12/04/24 12/04/24 Rx a dose pack (Medrol (Amador)) #21 tabs Nurse's Note: Patient has a rash covering all of her body that has been there for 2 weeks. Patient states it itches and in the shower makes it burn. PFSH Social History Smoking Status: Never smoker HPI HPI Chief Complaint: right eye redness/itching Details: TATI NINO, is a 59 F who presents to the office today for evaluation of full body rash. Patient states that the rash started 2 weeks ago primarily on her upper back and has progressed to involve her back, chest, abdomen, and extremities. She states that the rash is pruritic and worsens with increased heat. Patient has utilized aloe which offered no benefit. Patient denies recent travel, change in living environment, or changes in clothing/soap/fragran ce/lotions/supplement s. Patient denies history of similar rashes. ROS Const Constitutional: No body ache, chills, fatigue or fever(s) Skin Skin: Positive for redness, itchy eyes and rash; No nail changes, skin pain or skin swelling Endo Endocrine: No fatigue Aller/Imm Allergy/Immunologic: Positive for itchy eyes Exam Const General: cooperative, healthy appearing and no acute distress Skin Rashes: rashes noted (Diffuse full body erythematous vesicles without excoriations) Other: No edema, tenderness, fluctuance, or discharge noted at location of rash. Coding Level of Care Code New Pt Off vis,new,level 3 Patient Type New History Expanded Problem Focused Exam Expanded Problem Focused Medical Decision Making Low Complexity Diagnoses Urticaria L50.9 Assessment and Plan Assessment and Plan (1) Urticaria: Status: Acute Plan: Uncertain etiology based on history and exam, cannot r/o contact irritant. Will treat with Medrol at this time given duration and full body distribution. Reviewed appropriate skin care, use of hydrocortisone cream, and use of OTC Zyrtec for symptom management. If minimal improvement with above treatment f/u with PCP in 1-2 weeks for reevaluation. Patient voiced understanding and agreement with plan. Low concern for scabies based on distribution and history. Medications: New methylprednisolone (Medrol (Amador)) PO PER PKG DIR 21 tabs 0RF 12/04/24 1328 Date Shivam THOMASON Cosigner Signature: Date (if applicable) CC: Normal [facility] Basophil percentageOrdered B y: Ramsey Sargent on 07-15-2023 Chloride [Moles/Vol] 109 mmol/L 98-107 [facility] Cholesterol [Mass/Vol] 125 mg/dL <200 [facility] Comment on above: <200 mg/dL Desirable 200-240 mg/dL Borderline >240 mg/dL High Risk Glucose [Mass/Vol] 173 mg/dL 74-106 [facility] Comment on above: Fasting Glucose resu lt greater than or equal to 126 mg/dL suggests DIABETES MELLITUS per A.D.A. criteria. Potassium [Moles/Vol] 3.7 mmol/L 3.5-5.1 [facility] Sodium [Moles/Vol] 139 mmol/L 136-145 [facility] Triglyceride [Mass/Vol] 171 mg/dL <199 [facility] Comment on above: The drugs N-Acetylcy steine and Metamizole may falsely depress this assay.Serum Triglycerides Reference Interval Normal <150 mg/dL Borderline high 150 - 199 mg/dL High 200 - 499 mg/dL Very High > or = 500 mg/dL Laboratory - Chemistry and C hemistry - challengeOrdered By: Ramsey Sargent on 07-15-2023 CO2 [Moles/Vol] 20.0 mmol/L 21.0-32.0 [facility] Cobalamin (Vitamin B12) [Mass/Vol] 306 pg/mL 211-911 [facility] Urea nitrogen/Creatinine [Mass ratio] 26.1 mg/mg 07-11 [facility] No Panel InformationOrdered By: Ramsey Sargent on 07-15-2023 Estimated GFR (MDRD) Amer 89 mL/min >60 [facility] Comment on above: GFR Calc Estimated GFR (MDRD) Non-Af Amer 73 mL/min >60 [facility] Comment on above: Non- GFR Calc Thyroid Stimulating Hormone (TSH) 2.10 uIU/mL 0.358-3.74 [facility] Serum or plasma calcium delfino urement (mass/volume)Ordered By: Ramsey Sargent on 07-15-2023 Calcium [Mass/Vol] 9.2 mg/dL 8.5-10.1 [facility] Serum or plasma cholesterol in HDL measurement (mass/volume)Ordered By: Ramsey Sargent on 07-15-2023 Cholesterol in HDL [Mass/Vol] 43 mg/dL >40 [facility] Comment on above: The drugs N-Acetylcy steine and Metamizole may falsely depress this assay. Reference Range HDL <40 mg/dL Low HDL Cholesterol HDL >or= 60 mg/dL High HDL Cholesterol Serum or plasma cholesterol in VLDL measurement (mass/volume)Ordered By: Ramsey Sargent on 07-15-2023 Cholesterol in VLDL [Mass/Vol] 34 mg/dL 5-40 [facility] Serum or plasma creatinine m easurement (mass/volume)Ordered By: Ramsey Sargent on 07-15-2023 Creatinine [Mass/Vol] 0.84 mg/dL 0.55-1.02 [facility] Comment on above: The validity of the calculated GFR & GFRAA in patients over 70 years has not been determined. Clinical correlation is essential. Serum or plasma low density lipoprotein (LDL) cholesterol measurement (mass/volume)Ordered By: Ramsey Sargent on 07-15-2023 Cholesterol in LDL [Mass/Vol] 48 mg/dL 0-130 [facility] Serum or plasma urea nitroge n measurement (mass/volume)Ordered By: Ramsey Sargent on 07-15-2023 Urea nitrogen [Mass/Vol] 22 mg/dL 7-18 [facility] Thin prep Papanicolaou smear with manual screeningOrdered By: Ramsey Sargent on 07-15-2023 Thin prep Papanicolaou smear with manual screening 10 5-15 [facility] Basophil percentageon 2021 Cholesterol [Mass/Vol] 131 mg/dL <200 [facility] Work Phone: Comment on above: <200 mg/dL Desirable 200-240 mg/dL Borderline >240 mg/dL High Risk Triglyceride [Mass/Vol] 139 mg/dL <199 [facility] Work Phone: Comment on above: The drugs N-Acetylcy steine and Metamizole may falsely depress this assay.Serum Triglycerides Reference Interval Normal <150 mg/dL Borderline high 150 - 199 mg/dL High 200 - 499 mg/dL Very High > or = 500 mg/dL Serum or plasma cholesterol in HDL measurement (mass/volume)on 09-10-2022 Cholesterol in HDL [Mass/Vol] 39 mg/dL >40 [facility] Work Phone: Comment on above: The drugs N-Acetylcy steine and Metamizole may falsely depress this assay. Reference Range HDL <40 mg/dL Low HDL Cholesterol HDL >or= 60 mg/dL High HDL Cholesterol Serum or plasma cholesterol in VLDL measurement (mass/volume)on 09-10-2022 Cholesterol in VLDL [Mass/Vol] 28 mg/dL 5-40 [facility] Work Phone: Serum or plasma low density lipoprotein (LDL) cholesterol measurement (mass/volume)on 09-10-2022 Cholesterol in LDL [Mass/Vol] 64 mg/dL 0-130 [facility] Work Phone: .Auto Diffon 07-26-2020 Ammonia (P) [Mass/Vol] 0.40 10 3/mcL Normal 0.09-1.40 [facility] ([place]) Comment on above: Performed By: #### C BC, ADIFF, ANEU, APTT, PRO, CMP, GFR #### [address] [address] Basophils (Bld) [#/Vol] 0.00 10 3/mcL Normal 0.00-0.27 [facility] ([place]) Comment on above: Performed By: #### C BC, ADIFF, ANEU, APTT, PRO, CMP, GFR #### [address] [address] Basophils/100 WBC (Bld) 0.6 % Normal 0.0-2.5 [facility] ([place]) Comment on above: Performed By: #### C BC, ADIFF, ANEU, APTT, PRO, CMP, GFR #### [address] [address] Eosinophils (Bld) [#/Vol] 0.10 10 3/mcL Normal 0.00-0.65 [facility] ([place]) Comment on above: Performed By: #### C BC, ADIFF, ANEU, APTT, PRO, CMP, GFR #### [address] [address] Eosinophils/100 WBC (Bld) 2.4 % Normal 0.0-6.0 [facility] ([place]) Comment on above: Performed By: #### C BC, ADIFF, ANEU, APTT, PRO, CMP, GFR #### [address] [address] Lymphocytes (Bld) [#/Vol] 1.80 10 3/mcL Normal 0.90-4.32 [facility] ([place]) Comment on above: Performed By: #### C BC, ADIFF, ANEU, APTT, PRO, CMP, GFR #### [address] [address] Lymphocytes/100 WBC (Bld) 29.8 % Normal 20.0-40.0 [facility] ([place]) Comment on above: Performed By: #### C BC, ADIFF, ANEU, APTT, PRO, CMP, GFR #### [address] [address] Monocytes/100 WBC (Bld) 6.5 % Normal 2.0-13.0 [facility] ([place]) Comment on above: Performed By: #### C BC, ADIFF, ANEU, APTT, PRO, CMP, GFR #### [address] [address] Neutrophils/100 WBC (Bld) 60.7 % Normal 50.0-75.0 [facility] ([place]) Comment on above: Performed By: #### C BC, ADIFF, ANEU, APTT, PRO, CMP, GFR #### [address] [address] .GFRon 07-26-2020 GFR >60 Normal [facility] ([place]) Comment on above: Result Comment: GFR Population mean for , Non- Americans Ages 20-29 = 116 mL/min/1.73 sq.m. Ages 30-39 = 107 mL/min/1.73 sq.m. Ages 40-49 = 99 mL/min/1.73 sq.m. Ages 50-59 = 93 mL/min/1.73 sq.m. Ages 60-69 = 85 mL/min/1.73 sq.m. Ages 70+ = 75 mL/min/1.73 sq.m. Chronic Kidney Disease: Less than 60 mL/min/1.73 square meters End Stage Renal Disease: Less than 15 mL/min/1.73 square meters Performed By: #### C BC, ADIFF, ANEU, APTT, PRO, CMP, GFR #### [address] [address] GFR Non- >60 Normal [facility] ([place]) Comment on above: Result Comment: GFR Population mean for , Non- Americans Ages 20-29 = 116 mL/min/1.73 sq.m. Ages 30-39 = 107 mL/min/1.73 sq.m. Ages 40-49 = 99 mL/min/1.73 sq.m. Ages 50-59 = 93 mL/min/1.73 sq.m. Ages 60-69 = 85 mL/min/1.73 sq.m. Ages 70+ = 75 mL/min/1.73 sq.m. Chronic Kidney Disease: Less than 60 mL/min/1.73 square meters End Stage Renal Disease: Less than 15 mL/min/1.73 square meters Performed By: #### C BC, ADIFF, ANEU, APTT, PRO, CMP, GFR #### [address] [address] .NEUABSon 07-26-2020 Neutrophils (Bld) [#/Vol] 3.80 10 3/mcL Normal 2.25-8.10 [facility] ([place]) Comment on above: Performed By: #### C BC, ADIFF, ANEU, APTT, PRO, CMP, GFR #### [address] [address] APTTon 07-26-2020 aPTT Coag (Bld) [Time] Unknown Normal [facility] ([place]) Comment on above: Performed By: #### C BC, ADIFF, ANEU, APTT, PRO, CMP, GFR #### [place] [id number] aPTT Coag (Bld) [Time] 30.2 s Normal 25.0-35.0 [facility] ([place]) Comment on above: Result Comment: For Heparin anticoagulation therapy, the recommended therapeutic range is: 54-77 seconds (APTT Correlation with Anti-Xa therapeutic range of 0.3-0.7 units/ml). PLEASE REFERENCE THE PHARMACY PROTOCOL FOR DOSING. Performed By: #### C BC, ADIFF, ANEU, APTT, PRO, CMP, GFR #### [place] [id number] CBCon 07-26-2020 Erythrocyte distribution width (RBC) [Ratio] 13.6 % Normal 11.5-15.5 [facility] ([place]) Comment on above: Performed By: #### C BC, ADIFF, ANEU, APTT, PRO, CMP, GFR #### [place] [address] Hematocrit (Bld) [Volume fraction] 39.2 % Normal 34.0-46.0 [facility] ([place]) Comment on above: Performed By: #### C BC, ADIFF, ANEU, APTT, PRO, CMP, GFR #### [place] [address] Hemoglobin (Bld) [Mass/Vol] 13.2 G/dL Normal 12.0-16.0 [facility] ([place]) Comment on above: Performed By: #### C BC, ADIFF, ANEU, APTT, PRO, CMP, GFR #### [place] [id number] MCH (RBC) [Entitic mass] 29.0 pg Normal 27.0-33.0 [facility] ([place]) Comment on above: Performed By: #### C BC, ADIFF, ANEU, APTT, PRO, CMP, GFR #### [place] [id number] MCHC (RBC) [Mass/Vol] 33.8 G/dL Normal 32.0-36.0 [facility] ([place]) Comment on above: Performed By: #### C BC, ADIFF, ANEU, APTT, PRO, CMP, GFR #### [place] [id number] MCV (RBC) [Entitic vol] 85.8 fL Normal 80.0-99.0 [facility] ([place]) Comment on above: Performed By: #### C BC, ADIFF, ANEU, APTT, PRO, CMP, GFR #### [place] [address] Platelet mean volume (Bld) [Entitic vol] 7.7 fL Normal 6.6-10.5 [facility] ([place]) Comment on above: Performed By: #### C BC, ADIFF, ANEU, APTT, PRO, CMP, GFR #### [place] [id number] Platelets (Bld) [#/Vol] 196 10 3/mcL Normal 150-450 [facility] ([place]) Comment on above: Performed By: #### C BC, ADIFF, ANEU, APTT, PRO, CMP, GFR #### [place] [id number] RBC (Bld) [#/Vol] 4.56 10 6/mcL Normal 4.10-5.30 [facility] ([place]) Comment on above: Performed By: #### C BC, ADIFF, ANEU, APTT, PRO, CMP, GFR #### [place] [id number] WBC (Bld) [#/Vol] 6.20 10 3/mcL Normal 4.50-10.80 [facility] ([place]) Comment on above: Performed By: #### C BC, ADIFF, ANEU, APTT, PRO, CMP, GFR #### [place] [id number] CMPon 07-26-2020 Albumin [Mass/Vol] 3.7 G/dL Normal 3.2-4.8 [facility] ([place]) Comment on above: Performed By: #### C BC, ADIFF, ANEU, APTT, PRO, CMP, GFR #### [address] [address] Albumin/Globulin [Mass ratio] 1.5 {ratio} Normal 0.9-1.6 [facility] ([place]) Comment on above: Performed By: #### C BC, ADIFF, ANEU, APTT, PRO, CMP, GFR #### [address] [address] ALP [Catalytic activity/Vol] 86 U/L Normal 38-126 [facility] ([place]) Comment on above: Performed By: #### C BC, ADIFF, ANEU, APTT, PRO, CMP, GFR #### [place] [id number] ALT [Catalytic activity/Vol] 31 U/L Normal 10-49 [facility] ([place]) Comment on above: Performed By: #### C BC, ADIFF, ANEU, APTT, PRO, CMP, GFR #### [place] [id number] AST [Catalytic activity/Vol] 23 U/L Normal 8-34 [facility] ([place]) Comment on above: Performed By: #### C BC, ADIFF, ANEU, APTT, PRO, CMP, GFR #### [place] [id number] Bili Total 0.40 mg/dL Normal 0.20-1.20 [facility] ([place]) Comment on above: Result Comment: Use of this assay is not recommended for patients undergoing treatment with eltrombopag due to the potential for falsely elevated results. Performed By: #### C BC, ADIFF, ANEU, APTT, PRO, CMP, GFR #### [place] [id number] Calcium [Mass/Vol] 8.8 mg/dL Normal 8.7-10.4 [facility] ([place]) Comment on above: Result Comment: No te - New Reference Range in effect 20 Performed By: #### C BC, ADIFF, ANEU, APTT, PRO, CMP, GFR #### [place] [id number] Chloride [Moles/Vol] 107 mmol/L Normal 98-110 [facility] ([place]) Comment on above: Performed By: #### C BC, ADIFF, ANEU, APTT, PRO, CMP, GFR #### [address] [address] CO2 [Moles/Vol] 24 mmol/L Normal 22-32 [facility] ([place]) Comment on above: Performed By: #### C BC, ADIFF, ANEU, APTT, PRO, CMP, GFR #### [address] [address] Creatinine [Mass/Vol] 0.67 mg/dL Normal 0.50-1.20 [facility] ([place]) Comment on above: Performed By: #### C BC, ADIFF, ANEU, APTT, PRO, CMP, GFR #### [place] [id number] Electrolyte Balance 7.0 mEq/L Normal 4.0-15.0 Count includes the [facility] ([place]) Comment on above: Performed By: #### C BC, ADIFF, ANEU, APTT, PRO, CMP, GFR #### [address] [address] Globulin (S) [Mass/Vol] 2.5 G/dL Normal 1.5-3.8 [facility] ([place]) Comment on above: Performed By: #### C BC, ADIFF, ANEU, APTT, PRO, CMP, GFR #### [place] [id number] Glucose [Mass/Vol] 168 mg/dL High 70-110 [facility] ([place]) Comment on above: Performed By: #### C BC, ADIFF, ANEU, APTT, PRO, CMP, GFR #### [address] [address] Potassium [Moles/Vol] 4.0 mmol/L Normal 3.5-5.0 [facility] ([place]) Comment on above: Performed By: #### C BC, ADIFF, ANEU, APTT, PRO, CMP, GFR #### [address] [address] Protein [Mass/Vol] 6.2 G/dL Normal 5.7-8.2 [facility] ([place]) Comment on above: Result Comment: No te - New Reference Range in effect 20 Performed By: #### C BC, ADIFF, ANEU, APTT, PRO, CMP, GFR #### [address] [address] Sodium [Moles/Vol] 138 mmol/L Normal 136-145 [facility] ([place]) Comment on above: Performed By: #### C BC, ADIFF, ANEU, APTT, PRO, CMP, GFR #### [address] [address] Urea nitrogen [Mass/Vol] 21.0 mg/dL Normal 8.0-22.0 [facility] ([place]) Comment on above: Performed By: #### C BC, ADIFF, ANEU, APTT, PRO, CMP, GFR #### [address] [address] Urea nitrogen/Creatinine [Mass ratio] 31.3 ratio High 10.0-22.0 [facility] ([place]) Comment on above: Performed By: #### C BC, ADIFF, ANEU, APTT, PRO, CMP, GFR #### [address] [address] PROon 07-26-2020 INR Coag (PPP) [Relative time] 0.8 {INR} Normal [facility] ([place]) Comment on above: Result Comment: The [employer] (CHEST, 1992, 102:312S-25S) recommended therapeutic range for oral anticoagulant therapy is: LOW RISK: Prophylaxis of venous thrombosis INR: 2.0-3.0 Treatment of pulmonary embolism 2.0-3.0 Prevention of systemic embolism 2.0-3.0 HIGH RISK: Mechanical prosthetic valves 2.5-3.5 Performed By: #### C BC, ADIFF, ANEU, APTT, PRO, CMP, GFR #### [address] [address] PT Coag (PPP) [Time] 9.4 s Normal 9.0-14.6 [facility] ([place]) Comment on above: Result Comment: Effe ctive 04/05/08, Protime results may be affected by some antibiotics (i.e. Ciprofloxacin, Azithromycin, Bactrim) which may potentiate the action of oral anticoagulants, with further increase in Protime/INR. Performed By: #### C BC, ADIFF, ANEU, APTT, PRO, CMP, GFR #### [place] [address] Vital Signs Date Time Vital Sign Value Performing Clinician Facility 12-31-2024 19:24-0400 Body temperature 98.4 [degF] [facility] Phone: [facility] 12-31-2024 19:24-0400 Body weight 79 kg [facility]: [facility] 12-31-2024 19:24-0400 Diastolic blood pressure 85 mm[Hg] [facility] Phone: [facility] Comment on above: checked BP x 2 12-31-2024 19:24-0400 Heart rate 75 /min [facility] Phone: [facility] 12-31-2024 19:24-0400 Respiratory rate 20 /min [facility]: [facility] 12-31-2024 19:24-0400 SaO2% (BldA) [Mass fraction] 98 % [facility] Work Phone: [facility] 12-31-2024 19:24-0400 Systolic blood pressure 157 mm[Hg] [facility] Work Phone: [facility] Comment on above: checked BP x 2 Encounters Encounter Date Encounter Type Care Provider Facility Start: 04-20-2025 ambulatory [facility] Viktor lity:[facility] Start: 01-10-2025 End: 01-10-2025 ambulatory [facility] Facility:[facility] Start: 12-31-2024 End: 12-31-2024 ambulatory Facility:[facility] Start: 12-31-2024 End: 12-31-2024 Patient encounter procedure [facility] Work Phone: [facility] Comment on above: Pityriasis rosea (Pr imary Dx) Start: 12-04-2024 End: 12-04-2024 ambulatory [facility] Facility:[facility] Start: 07-15-2023 End: 07-15-2023 ambulatory [facility] Work Phone: Start: 07-15-2023 End: 07-15-2023 Patient encounter procedure [facility] Work Phone: Start: 09-17-2022 End: 09-17-2022 ambulatory [facility] Work Phone: Start: 09-17-2022 End: 09-17-2022 Patient encounter procedure [facility] Start: 09-10-2022 End: 09-10-2022 ambulatory [facility] Work Phone: Start: 09-10-2022 End: 09-10-2022 Patient encounter procedure [facility] Procedures Date Procedure Procedure Detail Performing Clinician Start: 09-17-2022 Screening mammography Plan of Treatment Date Care Activity Detail Author Start: 03-09-2029 Urine microalbumin profile DTaP,Tdap,Td Vaccine (2 - Td or Tdap) [facility] Start: 06-18-2026 Pneumococcal Vaccine : 50+ (3 of 3 - PCV20 or PCV21) Pneumococcal Vaccine: 50+ (3 of 3 - PCV20 or PCV21) [facility] Start: 05-23-2024 Covid-19 Vaccine ( season) Covid-19 Vaccine ( season) [facility] Start: 2023 RSV Vaccine (1 - Ris k 60-74 years 1-dose series) RSV Vaccine (1 - Risk 60-74 years 1-dose series) [facility] Start: 01-04-2009 Screening for malign ant neoplasm of breast Mammogram Screening [facility] Start: 2008 Diabetes Screening Diabetes Screenin g [facility] Start: 2008 Lipid panel Lipid Screening [facility] Start: 2008 Screening for malign ant neoplasm of colon [facility] Start: 02-05-2008 Screening for malign ant neoplasm of cervix Cervical Cancer Screening [facility] Start: 1981 Anxiety Screening Anxiety Screening [facility] Start: 1981 Depression Screening Depression Scre drew [facility] Start: 1981 Hepatitis C screening Hepatitis C Sc nasim [facility] Start: 1981 HIV screening HIV Screening [facility] Immunizations Immunization Date Immunization Notes Care Provider Fa greggty 06-14-2024 influenza, seasonal, injectable, preservative free [facility] Work Phone: [facility] 07-15-2023 influenza, injectabl e, quadrivalent, preservative free [facility] Phone: [facility] 09-10-2022 influenza, injectabl e, quadrivalent, preservative free [facility]: [facility] 09-10-2022 zoster vaccine recombinant [facility]: [facility] 06-18-2021 influenza, injectabl e, quadrivalent, contains preservative [facility]: [facility] 06-18-2021 pneumococcal conjuga te vaccine, 13 valent [facility] Phone: [facility] 06-18-2021 zoster vaccine recombinant [facility] Phone: [facility] 07-03-2020 influenza, injectabl e, quadrivalent, contains preservative [facility] Phone: [facility] 06-21-2019 influenza, seasonal, injectable [facility]: [facility] 03-09-2019 tetanus toxoid, redu rayo diphtheria toxoid, and acellular pertussis vaccine, adsorbed [facility]: [facility] 07-29-2018 influenza, injectabl e, quadrivalent, contains preservative [facility] Phone: [facility] 07-29-2018 pneumococcal polysaccharide vaccine, 23 valent [facility] Phone: [facility] 08-08-2017 influenza, injectabl e, quadrivalent, contains preservative [facility] Phone: [facility] 01-15-2002 hepatitis B vaccine, pediatric or pediatric/adolescent dosage [facility] Phone: [facility] 08-21-2001 hepatitis B vaccine, pediatric or pediatric/adolescent dosage [facility] Work Phone: [facility] 07-20-2001 hepatitis B vaccine, pediatric or pediatric/adolescent dosage [facility] Work Phone: [facility] Payers Date Payer Category Payer Private Health Insurance [id number] 2024 Self-pay [id number] 2022 [place] [facility] Subscriber Plan / Payer (Effective 2022-Present) Name: MASON NINO Relation to Subscriber: Spouse Name: Anil Nino Date of : 1959 (Home) Address: [address] [place] [id number] Payer ID: [id number] ([facility]) Type: PPO Address: [facility] [id number] [place] [id number] 2022 Unknown [id number] Unknown [id number] Unknown [id number] Social History Date Type Detail Facility Start: 06-22-2021 End: 06-22-2021 Tobacco smoking status ARIS Unknown if ever smoked [facility] Start: 1965 Sex Assigned At Female W [facility] Start: 12-31-2024 Tobacco smoking stat us NHIS Ex-smoker [facility] End: 12-21-1996 History of tobacco use Current smoker [facility] End: 12-21-1996 History of tobacco use Cigarette Smoker [facility] Start: 12-31-2024 Tobacco use and exposure Smokeless tobacco non-user [facility] Start: 12-31-2024 History of Social function [facility] Start: 12-31-2024 Tobacco use panel [facility] Start: 1965 Sex assigned at Not on file [facility] Instructions 12-31-2024 Patient Instructions Note Date & Type Note Facility 12-31-2024 Instructions Sreedhar Mcadams APRN.CNP - 12/31/2024 7:44 PM EDT Zyrtec 40 mg daily Follow up with dermatology for skin biopsy if persistent or worsening of symptoms Usually self resolves can last months. documented in this encounter [facility] Progress note 12-31-2024 Note Date & Type Note Facility 12-31-2024 Note HNO ID: [id number] Author: SREEDHAR MCADAMS APRN.CNP Service: ? Author Type: Nurse Practitioner Type: Progress Notes Filed: 12/31/2024 19:59 Note Text: [facility] Subjective Tati Nino is a 59 year old female. Patient presents with: Rash: All over body, red raised pustules in all areas including buttocks and privates, but not on face or neck. Has tried some treatment but only worsening more x 2 months Rash Pertinent negatives include no fatigue or fever. 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 59-year-old female with a history of diabetes she has had a skin rash for about a month and a half now. She states she was treated for scabies twice with no improvement of symptoms. She states it is super itchy. She denies any new soaps or detergents. No swelling of her hands or feet. Review of Systems Constitutional: Negative for chills, fatigue and fever. Skin: Positive for rash. Negative for color change, pallor and wound. Objective BP 157/85 Pulse 75 Temp 36.9 ?C (98.4 ?F) Resp 20 Wt 79 kg (174 lb 2.6 oz) LMP (LMP Unknown) SpO2 98% Physical Exam Constitutional: Appearance: Normal appearance. Cardiovascular: Rate and Rhythm: Normal rate and regular rhythm. Pulmonary: Effort: Pulmonary effort is normal. Breath sounds: Normal breath sounds. Skin: Comments: Dry patch 3 cm lesion on back, dry patch papular covering arms and abdomen difusely Neurological: Mental Status: She is alert. {ASSESSMENT/PLAN: 1. Pityriasis rosea - ICD9: 696.3, ICD10: L42 Zyrtec 40 mg daily Sreedhar Mcadams APRN.DIET ATTENDANT History and Record Review Clinical information obtained from an independent historian. History obtained from or confirmed by: family member. External record(s) reviewed: prior outpatient record. Disposition The patient was discharged. patient is well-appearing nontoxic in no acute distress. She presents today with psoriasis rosea. Does have a herald patch on her upper right trunk. No concerns of angioedema, cellulitis, or any neurovascular deficits today. Did discuss with her as she was treated with methylprednisone and permethrin before that would do Zyrtec at a higher dosing for itching and the usually self resolved itself can last several months. Would recommend following up with dermatology for skin test if symptoms are continuing to occur. Patient verbalized understanding and agreement with plan and discharged home. [facility] History of Present illness Narrative 12-31-2024 Sreedhar Mcadams APRN.DIET ATTENDANT - 12/31/2024 7:41 PM EDT Note Date & Type Note Facility 12-31-2024 History of Presen t illness Narrative [facility] Subjective Tati Nino is a 59 year old female. Patient presents with: Rash: All over body, red raised pustules in all areas including buttocks and privates, but not on face or neck. Has tried some treatment but only worsening more x 2 months Rash Pertinent negatives include no fatigue or fever. 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 59-year-old female with a history of diabetes she has had a skin rash for about a month and a half now. She states she was treated for scabies twice with no improvement of symptoms. She states it is super itchy. She denies any new soaps or detergents. No swelling of her hands or feet. Review of Systems Constitutional: Negative for chills, fatigue and fever. Skin: Positive for rash. Negative for color change, pallor and wound. Objective BP 157/85 Pulse 75 Temp 36.9 C (98.4 F) Resp 20 Wt 79 kg (174 lb 2.6 oz) LMP (LMP Unknown) SpO2 98% Physical Exam Constitutional: Appearance: Normal appearance. Cardiovascular: Rate and Rhythm: Normal rate and regular rhythm. Pulmonary: Effort: Pulmonary effort is normal. Breath sounds: Normal breath sounds. Skin: Comments: Dry patch 3 cm lesion on back, dry patch papular covering arms and abdomen difusely Neurological: Mental Status: She is alert. {ASSESSMENT/PLAN: 1. Pityriasis rosea - ICD9: 696.3, ICD10: L42 Zyrtec 40 mg daily Sreedhar Mcadams APRN.DIET ATTENDANT History and Record Review Clinical information obtained from an independent historian. History obtained from or confirmed by: family member. External record(s) reviewed: prior outpatient record. Disposition The patient was discharged. patient is well-appearing nontoxic in no acute distress. She presents today with psoriasis rosea. Does have a herald patch on her upper right trunk. No concerns of angioedema, cellulitis, or any neurovascular deficits today. Did discuss with her as she was treated with methylprednisone and permethrin before that would do Zyrtec at a higher dosing for itching and the usually self resolved itself can last several months. Would recommend following up with dermatology for skin test if symptoms are continuing to occur. Patient verbalized understanding and agreement with plan and discharged home. documented in this encounter [facility] Evaluation note Note Date & Type Note Facility Evaluation note No assessment information availa [facility] Work Phone: Evaluation note Note Date & Type Note Facility Evaluation note Diagnosis Pityriasis rosea- Primary documented in this encounter [facility] Summary Purpose Family History No Family History Records FoundNo Family History Records FoundNo Family History Records Found Advance Directives No Advanced Directives Records FoundNo Advanced Directives Records FoundNo Advanced Directives Records Found Chief Complaint and Reason for Visit Chief Complaint SCREENING Chief Complaint EORDER Additional Source Comments INFORMATION SOURCE (unrecogn ized section and content) DATE CREATED AUTHOR 08/14/2020 [facility] ([place]) DATE CREATED AUTHOR AUTHOR'S ORGANIZ ATION 01/02/2025 [facility] DATE CREATED AUTHOR AUTHOR'S ORGANIZ ATION 04/18/2025 [facility] Goals (unrecognized section and content) Goals may be documented in a n alternate sectionGoals may be documented in an alternate sectionGoals may be documented in an alternate section Care Teams (unrecognized sec tion and content) Team Status: Active Member Role Status Dates Dr. Ramsey Sargent MD Family Provider Active Dr. Ramsey Sargent MD Primary Care Provider Activ e Team Status: Inactive Member Role Status Dates Dr. Ramsey Sargent MD Primary Care Provider, Attending Provider, Referring Provider Active Source Comments (unrecognize d section and content) In the event this informatio n is protected by the Federal Confidentiality of Alcohol and Drug Abuse Patient Records regulations: The Federal rules restrict any use of the information to criminally investigate or prosecute any alcohol or drug abuse patient.[facility] Reason for Visit (unrecogniz ed section and content) Reason Comments Rash All over body, red r aised pustules in all areas including buttocks and privates, but not on face or neck. Has tried some treatment but only worsening more x 2 months FOR RECORDS PERTAINING TO PATIENTS WHO ARE OR HAVE BEEN ENROLLED IN A CHEMICAL DEPENDENCY/SUBSTANCEABUSE PROGRAM, SOME INFORMATION MAY BE OMITTED. This clinical summary was aggregated from multiple sources. Caution should be exercised in using it in the provision of clinical care. This summary normalizes information from multiple sources, and as a consequence, information in this document may materially change the coding, format and clinical context of patient data. In addition, data may be omitted in some cases. CLINICAL DECISIONS SHOULD BE BASED ON THE PRIMARY CLINICAL RECORDS. [facility] provides no warranty or guarantee of the accuracy or completeness of information in this document.
== END | disposition home or self-care (01) ==
LOC: OPBI 07:38
PROVIDERS: PCP Family Medicine; Referring Provider Family Medicine; Visit Provider Family Medicine
DX: Z12.31 Encounter for screening mammogram for malignant neoplasm of breast (principal)
CPT/HCPCS: 77063; 77067